=== PATIENT | male | born 1945 | race Caucasian/White ===

== ENCOUNTER → 2017-02-26 | Outpatient (CLI) | payer MEDICARE ==
[~2017-02-26] MED LIST: CALC-227 PO; CRAN200C PO; METO-333 PO; OMG1KC PO; SIMV20TA3 PO; TRAM50TA2 PO; UBID100C17 PO
--- NOTE | 2017-03-01 07:15 | ECHOCARDIOGRAPHY REPORT ---
DATE OF SERVICE: 02/26/2017 2d ECHOCARDIOGRAM PROCEDURE: Two-dimensional echocardiogram INDICATION: Hypertension. MEASUREMENT: LVID end diastolic 5.2. IVS thickness 0.8. LVPW thickness 0.8. Left atrial diameter 3.2. Ejection fraction 60%. FINDINGS: 1. Technical quality is good. 2. The left ventricle is normal in size with normal contractility, mild left ventricular hypertrophy noted, systolic function appeared to be normal, estimated ejection fraction 60%. 3. The left atrium is normal in size. 4. No clot or thrombus was seen within the left atrium. 5. The right atrium and right ventricle are normal in size. No clot or thrombus was seen within the right side. 6. Mitral valve is calcified with moderate mitral regurgitation noted by color Doppler flow. No mitral valve prolapse. No mitral valve stenosis. 7. Aortic valve is calcified. There is no significant aortic valve stenosis or regurgitation seen. 8. Tricuspid valve is normal in morphology with mild tricuspid regurgitation noted by color Doppler flow. Doppler across the tricuspid valve estimated pulmonary artery pressure of 28+ right atrial pressures. 9. Pulmonic valve is functioning normally. 10. No pericardial effusion. CONCLUSION: 1. Mild left ventricular hypertrophy with normal systolic function, estimated ejection fraction is 60%. 2. Moderate mitral regurgitation with calcified mitral valve, mild tricuspid regurgitation. 3. Estimated pulmonary artery pressure of 35 mmHg. Job ID: [id number] DocumentID: [id number] Dictated Date: 02/28/2017 14:30:39 Grey Inspector Date: 02/28/2017 16:15:13 Dictated By: TITO CAUDRA MD
== END ==
LOC: CARD 13:41
PROVIDERS: ATTEND Internal Medicine Cardiovascular Disease
DX: I10 Essential (primary) hypertension (principal); E78.2 Mixed hyperlipidemia; I65.23 Occlusion and stenosis of bilateral carotid arteries; I34.0 Nonrheumatic mitral (valve) insufficiency
CPT/HCPCS: 93306

== ENCOUNTER 2018-07-30 08:40 | Outpatient (CLI) | payer MEDICARE | END 2018-07-30 09:25 | disposition home or self-care (01) | LOC: SLEEP 08:40 | PROVIDERS: ATTEND Family Medicine | DX: R06.83 Snoring (principal) ==

== ENCOUNTER → 2018-11-22 | Outpatient (CLI) | payer MEDICARE | LOC: CARD 12:01 | PROVIDERS: ATTEND Internal Medicine Cardiovascular Disease | DX: I10 Essential (primary) hypertension (principal); E78.5 Hyperlipidemia, unspecified; I65.29 Occlusion and stenosis of unspecified carotid artery; I34.0 Nonrheumatic mitral (valve) insufficiency; I08.1 Rheumatic disorders of both mitral and tricuspid valves | CPT/HCPCS: 93306 ==

== ENCOUNTER → 2019-07-21 | Outpatient (CLI) | payer MEDICARE ==
--- NOTE | 2019-07-21 12:24 | Diagnostic Imaging Report ---
Supine abdomen 1031 hours. INDICATION: Low back pain. 2 supine views were obtained. FINDINGS: There is gas in both large and small bowel in a nonspecific fashion. This appearance is similar to final cleaner film from the prior CT abdomen/pelvis exam of 03/30/2016. There is no evidence for bowel obstruction. There is moderate amount of fecal material in ascending and transverse colon. There is no mass or organomegaly or pathological calcification evident. The osseous structures are intact. IMPRESSION: The bowel gas pattern is nonspecific. There is no evidence for an acute abnormality. Dictated by: Dictated on workstation # [id number]
== END ==
LOC: RAD 09:54
PROVIDERS: ATTEND Nurse Practitioner Family
DX: Z12.5 Encounter for screening for malignant neoplasm of prostate (principal); M54.5 Low back pain; R10.9 Unspecified abdominal pain
CPT/HCPCS: 36415; 74018; 84153

== ENCOUNTER → 2019-09-03 | Outpatient (CLI) | payer MEDICARE | LOC: CARD 10:13 | PROVIDERS: ATTEND Physician Assistant | DX: I25.10 Atherosclerotic heart disease of native coronary artery without angina pectoris (principal); I51.7 Cardiomegaly; I65.29 Occlusion and stenosis of unspecified carotid artery; I10 Essential (primary) hypertension; E78.5 Hyperlipidemia, unspecified; Z82.49 Family history of ischemic heart disease and other diseases of the circulatory system | CPT/HCPCS: 93351 ==

== ENCOUNTER 2021-01-28 10:30 | Outpatient (RCR) | payer MEDICARE ==
[~2021-01-28 10:30] MED LIST changes: +SIMV20TA26 PO; -SIMV20TA3 PO; -TRAM50TA2 PO; +TRM50T PO
== END 2021-04-28 | disposition home or self-care (01) ==
LOC: CARD 10:30
PROVIDERS: ATTEND Family Medicine
DX: R00.2 Palpitations (principal); R00.0 Tachycardia, unspecified
CPT/HCPCS: 93225; 93226

== ENCOUNTER → 2021-04-04 | Outpatient (CLI) | payer MEDICARE | LOC: CARD 09:03 | PROVIDERS: ATTEND Internal Medicine Cardiovascular Disease | DX: I34.0 Nonrheumatic mitral (valve) insufficiency (principal); I11.9 Hypertensive heart disease without heart failure; I25.10 Atherosclerotic heart disease of native coronary artery without angina pectoris | CPT/HCPCS: 93306 ==

== ENCOUNTER → 2021-06-07 | Outpatient (CLI) | payer MEDICARE ==
--- NOTE | 2021-06-07 14:44 | Diagnostic Imaging Report ---
INDICATION: Osteopenia COMPARISON: None. FINDINGS: AP Spine L1-L4: [BMD (g/cm2): 1.252] [T-Score: 0.1] [Z-Score: 1.1] [BMD Previous: NA] [BMD % Change: NA] LT Hip Neck: [BMD (g/cm2): 0.744] [T-Score: -2.5] [Z-Score: -0.8] LT Hip Total: [BMD (g/cm2):0.788] [T-Score:-2.2] [Z-Score: -1.0] [BMD Previous: NA] [BMD % Change: NA] RT Hip Neck: [BMD (g/cm2):0.713] [T-Score:-2.7] [Z-Score:-1.1] RT Hip Total: [BMD (g/cm2):0.702] [T-score:-2.8] [Z-Score:-1.6] [BMD Previous:NA] [BMD % Change:NA] *Indicates significant change from prior examination based on 95% confidence level. World Health Organization criteria for BMD interpretation classify patients as Normal (T-score at or above -1.0), Osteopenic (T-score between -1.0 and -2.5) or Osteoporotic (T-score at or below -2.5). LIMITATIONS AND MODIFICATION: None. FRACTURE RISK (FRAX SCORE): The ten year probability of (%): Major Osteoporotic Fracture: [15.8] Hip Fracture: [6.6] IMPRESSION: 1. Osteoporosis. 2. Baseline examination. 3. See below National Osteoporosis Foundation guidelines on when to potentially initiate pharmacologic therapy. Based on the National Osteoporosis Foundation Guidelines, pharmacologic treatment should be initiated in any of the following, unless clinical conditions suggest otherwise: * Any patient with prior fragility fracture of the hip or vertebrae. A spine fracture indicates 5X risk for subsequent spine fracture and 2X risk for subsequent hip fracture. * Osteoporosis (T-score <-2.5). * Postmenopausal women and men age 50 and older with low bone mass/osteopenia (T-score between -1.0 and -2.5) by DXA and 10-year major osteoporotic fracture greater than 20% or a 10-year probability of hip fracture greater than 3%. These fracture risks are supplied above in the FRAX score, if applicable. * Clinician judgement and/or patient preferences may indicate treatment for people with 10-year fracture probabilities above or below these levels. Dictated by: Dictated on workstation # [id number]
== END ==
LOC: RAD 13:18
PROVIDERS: ATTEND Family Medicine
DX: M81.0 Age-related osteoporosis without current pathological fracture (principal); M85.88 Other specified disorders of bone density and structure, other site
CPT/HCPCS: 77080

== ENCOUNTER → 2021-06-15 | Outpatient (CLI) | payer MEDICARE ==
[~2021-06-15] VITALS: Ht 167 cm; Wt 68.0 kg
[~2021-06-15] MED LIST changes: +REGADENOSON 0.4 MG/5 ML SYR (LEXISCAN) IV ONE
[2021-06-15] MEDS: CATHETER FLUSH 10 ML SYR IV PRN ×2 (07:13→09:08)
[2021-06-15 09:07] VITALS: BP 157/100
--- NOTE | 2021-06-15 11:22 | Cardiology Stress Test Report ---
Stress Test Report Date of Procedure/Referring: Date of Procedure: Jun 15, 2021 PCP Tito Douglas MD Admitting Physician Lynette Howard MD Indications: HTN Baseline Heart Rate: 73 Baseline Blood Pressure: Blood Pressure Systolic: 157 Blood Pressure Diastolic: 100 Baseline Vitals Vital Signs Date Time Temp Pulse Resp B/P (MAP) Pulse Ox O2 Delivery O2 Flow Rate FiO2 06/15/21 09:07 66 14 157/100 (119) 96 Room Air Baseline EKG: Baseline EKG: NSR Summary After explaining the procedure to the patient, he signed a consent and then brought to the stress nuclear laboratory. Patient received 0.4 mg Lexiscan for stress test, ECG, heart rate and blood pressure were monitored continuously. Resting and stress dose of radio tracer were injected, imaging was acquired and reviewed in short axis, horizontal long axis and vertical long axis views. TID: 1.09 SSS: 0 SDS: 0 EF: 64 1. Patient tolerated Lexiscan well 2. No significant ischemia or infarction on SPECT images 3. Normal left ventricular size, EF 64% TITO DOUGLAS MD Jun 15, 2021 11:22
== END ==
LOC: CARD 07:30
PROVIDERS: ATTEND Internal Medicine Cardiovascular Disease
DX: I10 Essential (primary) hypertension (principal); I25.10 Atherosclerotic heart disease of native coronary artery without angina pectoris
CPT/HCPCS: 78452; 93017; A9502

== ENCOUNTER 2021-10-28 12:06 | Outpatient (CLI) | payer MEDICARE ==
[~2021-10-28] VITALS: Wt 68.0 kg
[~2021-10-28 12:06] MED LIST changes: -REGADENOSON 0.4 MG/5 ML SYR (LEXISCAN) IV ONE
[2021-10-28] MEDS ORDERED: DENOSUMAB 60 MG/1 ML (PROLIA) SQ SCH (12:30)
[2021-10-28 12:52] VITALS: BP 121/88
== END 2021-10-28 13:14 ==
LOC: SDC 12:06
PROVIDERS: ATTEND Family Medicine
DX: M81.0 Age-related osteoporosis without current pathological fracture (principal)
CPT/HCPCS: 96372

== ENCOUNTER → 2021-11-18 | Outpatient (CLI) | payer MEDICARE | LOC: LABNPT 08:22 | PROVIDERS: ATTEND Orthopaedic Surgery | DX: Z20.822 Contact with and (suspected) exposure to COVID-19 (principal) | CPT/HCPCS: 87635 ==

== ENCOUNTER → 2021-11-21 | Outpatient (CLI) | payer MEDICARE | LOC: LABNPT 06:06 | PROVIDERS: ATTEND Family Medicine | DX: Z53.9 Procedure and treatment not carried out, unspecified reason (principal) | CPT/HCPCS: 87635 ==

== ENCOUNTER → 2021-12-19 | Outpatient (RCR) | payer MEDICARE | END | disposition home or self-care (01) | PROVIDERS: ATTEND Orthopaedic Surgery | DX: Z47.1 Aftercare following joint replacement surgery (principal); I10 Essential (primary) hypertension; Z96.652 Presence of left artificial knee joint ==

== ENCOUNTER 2022-01-16 11:30 | Outpatient (RCR) | payer MEDICARE | END 2022-01-19 | disposition home or self-care (01) | PROVIDERS: ATTEND Orthopaedic Surgery | DX: M17.12 Unilateral primary osteoarthritis, left knee (principal); I10 Essential (primary) hypertension; Z96.652 Presence of left artificial knee joint ==

== ENCOUNTER 2022-02-16 10:36 | Outpatient (RCR) | payer MEDICARE | END 2022-02-16 16:01 | disposition home or self-care (01) | PROVIDERS: ATTEND Orthopaedic Surgery | DX: Z47.1 Aftercare following joint replacement surgery (principal); I11.0 Hypertensive heart disease with heart failure; Z96.652 Presence of left artificial knee joint ==

== ENCOUNTER → 2022-04-14 | Outpatient (CLI) | payer MEDICARE ==
[~2022-04-14] MED LIST changes: +DENOSUMAB 60 MG/1 ML (PROLIA) SQ ONE
[2022-04-14 12:08] VITALS: BP 127/85
== END ==
LOC: SDC 11:33
PROVIDERS: ATTEND Family Medicine
DX: M81.0 Age-related osteoporosis without current pathological fracture (principal)
CPT/HCPCS: 96372

== ENCOUNTER → 2022-04-17 | Outpatient (CLI) | payer MEDICARE ==
[~2022-04-17] MED LIST changes: -DENOSUMAB 60 MG/1 ML (PROLIA) SQ ONE
--- NOTE | 2022-04-17 11:05 | Diagnostic Imaging Report ---
INDICATION: Cough. PA and lateral views of the chest are obtained. Comparison is made study of 03/14/2016. FINDINGS: There has been mild increase in moderate hiatal hernia. No infiltrate, pneumothorax or significant pleural fluid is seen. There is mild thoracic spondylosis. IMPRESSION: Mild increase in hiatal hernia with otherwise stable unremarkable chest. Dictated by: Dictated on workstation # [id number]
== END ==
LOC: RAD 10:25
PROVIDERS: ATTEND Family Medicine
DX: K44.9 Diaphragmatic hernia without obstruction or gangrene (principal)
CPT/HCPCS: 71046

== ENCOUNTER → 2022-11-07 | Outpatient (CLI) | payer MEDICARE ==
[~2022-11-07] VITALS: Ht 167.6 cm; Wt 71.8 kg
[~2022-11-07] MED LIST changes: +DENOSUMAB 60 MG/1 ML (PROLIA) SQ SCH
[2022-11-07 10:35] VITALS: BP 157/89
== END ==
LOC: SDC 10:28
PROVIDERS: ATTEND Family Medicine
DX: M81.0 Age-related osteoporosis without current pathological fracture (principal)
CPT/HCPCS: 96372

== ENCOUNTER 2023-04-02 08:19 | Emergency (ER) | payer MEDICARE ==
[~2023-04-02] VITALS: Ht 167 cm; Wt 69.0 kg
[~2023-04-02 08:19] MED LIST changes: -DENOSUMAB 60 MG/1 ML (PROLIA) SQ SCH
--- NOTE | 2023-04-02 09:43 | Diagnostic Imaging Report ---
INDICATION: Cough. Comparison is made with prior exam of 04/17/2022. FINDINGS: There is cardiomegaly. There is a hiatal hernia. There are some bibasilar subsegmental atelectasis and/or pneumonitis. There is no pleural effusion or pneumothorax. The mediastinum is unremarkable. IMPRESSION: Cardiomegaly with bibasilar subsegmental atelectasis and/or pneumonitis. Moderate hiatal hernia. Dictated by: Dictated on workstation # [id number]
[2023-04-02] MEDS ORDERED: AZIT250T12 PO (10:34)
--- NOTE | 2023-04-02 10:34 | ED Cough/URI ---
General Chief Complaint: Cough/Cold/Flu Symptoms Stated Complaint: COLD | COUGH Nursing Triage Note: PT STATES COUGH THAT STARTED SUNDAY AFTERNOON, COUGHING UP THICK YELLOW MUCUS Source: patient Exam Limitations: no limitations History of Present Illness Date Seen by Provider: Apr 02, 2023 Time Seen by Provider: 09:13 Initial Comments Here with cough and congestion that started 3 days ago. Reports thick yellow mucus at he is coughing up. Also complains of mild sore throat and nasal congestion as well as dry mouth in the morning. Denies nausea, vomiting or diar venice. Denies chest pain but does state that he feels tight when he coughs. He does not smoke. He is concerned about pneumonia. Timing/Duration: constant, other (3 days) Severity/Quality: mild, moderate, productive cough, sputum Prior Episodes/Possible Cause: occasional episodes Modifying Factors: Improves With Rest Associated Symptoms: cough, fever/chills, shortness of breath, sore throat Allergies and Home Medications Allergies Coded Allergies: codeine (Verified Allergy, Unknown, NAUSEA, 04/05/16) Patient Home Medication List Home Medication List Reviewed: Yes Calcium Carbonate/Vitamin D3 (Calcium 250+D Tablet) 1 Each Tablet, 1 EACH PO DAILY, (Reported) Entered as Reported by: KESHA NOEL on 04/05/16 1450 Cranberry Extract (Cranberry) 200 Mg Capsule, 200 MG PO DAILY, (Reported) Entered as Reported by: KESHA NOEL on 04/05/16 1450 Metoprolol Tartrate (Metoprolol Tartrate) 25 Mg Tablet, 25 MG PO BID, (Reported) Entered as Reported by: KESHA NOEL on 04/05/16 1450 Sanders 3 Polyunsat Fatty Acids (Fish Oil 1,000 mg Capsule) 1,000 Mg Cap, 1,000 MG PO BID, (Reported) Entered as Reported by: KESHA NOEL on 04/05/16 1450 Simvastatin (Simvastatin) 20 Mg Tablet, 20 MG PO HS, (Reported) Entered as Reported by: KESHA NOEL on 04/05/16 1450 Tramadol HCl (Tramadol HCl) 50 Mg Tablet, 50 MG PO TID PRN for PAIN, (Reported) Entered as Reported by: KESHA NOEL on 04/05/16 1450 Ubidecarenone (Coq-10) 100 Mg Capsule, 100 MG PO BID, (Reported) Entered as Reported by: KESHA NOEL on 04/05/16 1920 Review of Systems Review of Systems Constitutional: see HPI; No chills, No fever EENTM: see HPI Respiratory: see HPI Cardiovascular: see HPI Gastrointestinal: No diarrhea, No nausea, No vomiting Genitourinary: no symptoms reported Musculoskeletal: no symptoms reported Past Zljmbti-Koglfg-Ljejqc Hx Patient Social History Tobacco Use?: No Substance use?: No Alcohol Use?: No Past Medical History Surgery/Hospitalization HX: HTN, GOUT, CHRONIC KIDNEY DISESASE STAGE III, BI LAT KNEE SURGERY Surgeries: Yes Orthopedic Cardiac: Yes High Cholesterol Genitourinary: Yes (Chronic kidney disease) Musculoskeletal: Yes Gout Family Medical History Reviewed Nursing Family Hx Physical Exam Vital Signs - First Documented 04/02/23 08:28 Temp 35.8 Pulse 80 Resp 18 B/P (MAP) 140/84 (102) Pulse Ox 97 O2 Delivery Room Air Capillary Refill : Less Than 3 Seconds Height: 5'7.00" Weight: 130lbs. 0.0oz. 58.056228ms; 24.00 BMI Method: General Appearance: WD/WN, no apparent distress HEENT: PERRL/EOMI, pharyngeal erythema; No tonsillar exudate Neck: full range of motion, supple; No lymphadenopathy (R), No lymphadenopathy (L) Respiratory: lungs clear, normal breath sounds, no respiratory distress Cardiovascular: regular rate, rhythm, no murmur Neurologic/Psychiatric: alert, oriented x 3 Skin: normal color, warm/dry Progress/Results/Core Measures Suspected Sepsis SIRS Temperature: Pulse: 80 Respiratory Rate: 18 Blood Pressure 140 /84 Mean: 102 Results/Orders My Orders Orders - TIANA PARKER MD Chest 1 View, Ap/Pa Only (04/02/23 09:20) Vital Signs/I&O 04/02/23 04/02/23 08:28 08:30 Temp 35.8 Pulse 80 Resp 18 B/P (MAP) 140/84 (102) Pulse Ox 97 O2 Delivery Room Air Room Air Capillary Refill : Less Than 3 Seconds Blood Pressure Mean: 102 Progress Note : Progress Note Seen and evaluated. Chest x-ray ordered. Differential diagnosis includes pneumonia, bronchitis, upper respiratory infection, sinusitis. Monitor patient. 1030: Chest x-ray shows no obvious infiltrate on my interpretation although there does appear to be some atelectasis. Radiology report reviewed and agrees. This was discussed with the patient. We will go ahead and initiate outpatient azithromycin in case this is bacterial bronchitis and or early sinusitis. This was discussed with the patient who agrees. Discharged home with return precautions. Patient verbalized understanding of instructions and agreement with plan. Diagnostic Imaging Diagonstic Imaging: Xray Plain Films/CT/US/NM/MRI: chest Comments [facility], [place] NAME: MARI DURANT [facility] REC#: [id number] PT STATUS: REG ER : 1945 PHYSICIAN: TIANA PARKER MD ADMIT DATE: 04/02/23/ER Signed Date of Exam:04/02/23 CHEST 1 VIEW, AP/PA ONLY INDICATION: Cough. Comparison is made with prior exam of 04/17/2022. FINDINGS: There is cardiomegaly. There is a hiatal hernia. There are some bibasilar subsegmental atelectasis and/or pneumonitis. There is no pleural effusion or pneumothorax. The mediastinum is unremarkable. IMPRESSION: Cardiomegaly with bibasilar subsegmental atelectasis and/or pneumonitis. Moderate hiatal hernia. Dictated by: Dictated on workstation # [id number] Dict: 04/02/23 0939 Trans: 04/02/23 1012 [facility] [id number] Interpreted by: DENIS LANDAVERDE MD Electronically signed by: DENIS LANDAVERDE MD 04/02/23 1012 Reviewed: Reviewed by Me Departure Impression Primary Impression: Upper respiratory infection Qualified Codes: J06.9 - Acute upper respiratory infection, unspecified Disposition: HOME, SELF-CARE Condition: Improved Departure-Patient Inst. Decision time for Depature: 10:33 Referrals: JACOB LEWIS MD (PCP/Family) Primary Care Physician Patient Instructions: Viral Upper Respiratory Infection, Adult (DC) Add. Discharge Instructions: All discharge instructions reviewed with patient and/or family. Voiced understanding. Take medications as directed. You may take Tylenol/acetaminophen 1000 mg every 8 hours as needed for fever or pain. You may use Afrin nasal spray or the generic, 12 hour relief, 2 sprays to each nostril twice daily for 3 days only and then stop. Do not use more than 3 days. Follow-up with your Dr. in a few day s for recheck. Drink plenty of fluids. Return for worse pain, fever, vomiting, weakness, breathing problems or other concerns as needed. Scripts Azithromycin (Azithromycin) 250 Mg Tablet 250 MG PO UD, #6 TAB TAKE 2 TABLETS ON DAY ONE THEN TAKE 1 TABLET DAILY FOR FOUR MORE DAYS Prov: TIANA PARKER MD 04/02/23 TIANA PARKER MD Apr 02, 2023 10:34
[2023-04-02 10:45] VITALS: BP 102/68
== END 2023-04-02 10:40 | disposition home or self-care (01) ==
LOC: EDUNIT# 08:19 → ER 08:21
DX: J06.9 Acute upper respiratory infection, unspecified (principal)
CPT/HCPCS: 71045

== ENCOUNTER 2023-04-10 10:29 | Outpatient (CLI) | payer MEDICARE ==
[~2023-04-10 10:29] MED LIST changes: +AZIT250T12 PO
[2023-04-10 10:45] VITALS: BP 121/77
[2023-04-10] MEDS ORDERED: DENOSUMAB 60 MG/1 ML (PROLIA) SQ SCH (10:45)
== END 2023-04-10 11:40 | disposition home or self-care (01) ==
LOC: SDC 10:29
PROVIDERS: ATTEND Family Medicine
DX: M81.0 Age-related osteoporosis without current pathological fracture (principal)
CPT/HCPCS: 96372

== ENCOUNTER → 2023-05-22 | Outpatient (CLI) | payer MEDICARE ==
--- NOTE | 2023-05-22 10:08 | Diagnostic Imaging Report ---
INDICATION: Personal history of osteoporosis COMPARISON: 06/07/2021 FINDINGS: AP Spine L1-L4: [BMD (g/cm2): 1.278] [T-Score: 0.3] [Z-Score: 1.3] [BMD Previous: 1.252] [BMD % Change: 2.1] LT Hip Neck: [BMD (g/cm2): 0.745] [T-Score: -2.5] [Z-Score: -0.8] LT Hip Total: [BMD (g/cm2):0.814] [T-Score:-2.0] [Z-Score: -0.8] [BMD Previous: 0.788] [BMD % Change: 3.3] RT Hip Neck: [BMD (g/cm2):0.698] [T-Score:-2.9] [Z-Score:-1.2] RT Hip Total: [BMD (g/cm2):0.721] [T-score:-2.6] [Z-Score:-1.4] [BMD Previous:0.702] [BMD % Change:2.7] *Indicates significant change from prior examination based on 95% confidence level. World Health Organization criteria for BMD interpretation classify patients as Normal (T-score at or above -1.0), Osteopenic (T-score between -1.0 and -2.5) or Osteoporotic (T-score at or below -2.5). LIMITATIONS AND MODIFICATION: None. FRACTURE RISK (FRAX SCORE): The ten year probability of (%): Major Osteoporotic Fracture: [17.8] Hip Fracture: [7.8] IMPRESSION: 1. Osteoporosis. 2. No significant change in bone mineral density since prior examination. 3. See below National Osteoporosis Foundation guidelines on when to potentially initiate pharmacologic therapy. Based on the National Osteoporosis Foundation Guidelines, pharmacologic treatment should be initiated in any of the following, unless clinical conditions suggest otherwise: * Any patient with prior fragility fracture of the hip or vertebrae. A spine fracture indicates 5X risk for subsequent spine fracture and 2X risk for subsequent hip fracture. * Osteoporosis (T-score <-2.5). * Postmenopausal women and men age 50 and older with low bone mass/osteopenia (T-score between -1.0 and -2.5) by DXA and 10-year major osteoporotic fracture greater than 20% or a 10-year probability of hip fracture greater than 3%. These fracture risks are supplied above in the FRAX score, if applicable. * Clinician judgement and/or patient preferences may indicate treatment for people with 10-year fracture probabilities above or below these levels. Dictated by: Dictated on workstation # [id number]
== END ==
LOC: RAD 09:16
PROVIDERS: ATTEND Family Medicine
DX: M81.0 Age-related osteoporosis without current pathological fracture (principal)
CPT/HCPCS: 77080